=== PATIENT | female | born 1985 | race Caucasian/White ===

== ENCOUNTER 2018-08-31 04:04 | Emergency (ER) | payer OTHER ==
[~2018-08-31] VITALS: Ht 162.6 cm; Wt 99.8 kg
[2018-08-31 04:06] VITALS: BP 127/74
--- NOTE | 2018-08-31 04:06 | NUR ---
to bed # 5 ambulatory, report given to Greg Jack
--- NOTE | 2018-08-31 04:10 | NUR ---
PT PRESENTED ER WITH C/O PAIN TO THE LEFT EYE, CONGESTION AND COUGH X 3 DAYS. PT STATED SHE HAD FEVER, N/V/D X 2 DAYS AGO. PT DENIES FEVER, D/N/V AT THIS TIME. PAIN LEVEL IS 9/10 AT THIS TIME. PT IS A/O X 4. PT STATED SHE TOOK NYQUIL, EYE DROPS VISINE, AND IBUPROFEN. PT STATES SHE CANT OPEN HER LEFT EYE WITHOUT IT BURNING. PT HAS REDNESS AND SWELLING TO THE LEFT EYE; VSS; PATIENT POSITIONED FOR COMFORT; HOB ELEVATED; BEDRAILS UP X2; BED DOWN. ER MD MADE AWARE OF PT STATUS.
--- NOTE | 2018-08-31 04:21 | NUR ---
Dr. Mcintosh evaluating patient at bedside.
[2018-08-31] MEDS ORDERED: NACL 0.9% 1,000 ML IV ONE (04:30)
[2018-08-31 05:01] LABS: BASOPHILS % (AUTO) 0.4 % (0.0-2.0); EOSINOPHILS # (AUTO) 0.4 K/uL (0-0.4); EOSINOPHILS % (AUTO) 3.2 % (0.0-4.0); HEMATOCRIT 41.5 % (36-48); HEMOGLOBIN 13.3 g/dL (12.0-16.0); LYMPHOCYTES # (AUTO) 1.9 K/uL (2.5-16.5); LYMPHOCYTES % (AUTO) 17.1 % (20.5-51.1); MEAN CORPUSCULAR HEMOGLOBIN 26 pg (27-31); MEAN CORPUSCULAR HGB CONC 32 g/dL (33-37); MEAN CORPUSCULAR VOLUME 81.8 fL (80-94); MONOCYTES # (AUTO) 0.8 K/uL (0.8-1.0); MONOCYTES % (AUTO) 7.4 % (1.7-9.3); NEUTROPHILS # (AUTO) 7.9 K/uL (1.8-7.7); NEUTROPHILS % (AUTO) 71.9 % (42.2-75.2); PLATELET COUNT (AUTO) 343 K/uL (140-450); RED BLOOD CELL COUNT(AUTO) 5.07 MIL/uL (4.20-5.40); RED CELL DISTRIBUTION WIDTH 12.6 % (11.6-13.7); WHITE BLOOD COUNT (AUTO) 11.1 K/uL (4.8-10.8)
[2018-08-31 05:09] LABS: ANION GAP 11.9 (8-16); CARBON DIOXIDE 26.4 mmol/L (21-32); CREATININE 0.7 mg/dL (0.6-1.3); POTASSIUM 4.3 mmol/L (3.5-5.1)
[2018-08-31 05:17] LABS: ALBUMIN 3.5 g/dL (3.4-5.0); TOTAL BILIRUBIN 0.3 mg/dL (0.0-1.0)
--- NOTE | 2018-08-31 05:17 | NUR ---
PT BACK FROM CT BY WHEEL CHAIR
[2018-08-31] MEDS ORDERED: ONDANSETRON 4 MG/2 ML VIAL IVP ONE (05:55)
[2018-08-31] MEDS ORDERED: KETOROLAC 30 MG/ML VIAL IVP ONE (06:05)
--- NOTE | 2018-08-31 06:13 | NUR ---
PT STARTED FEELING NAUSEOUS AND VOMITING, ER MD MADE AWARE, PT GIVEN 8MG ZOFRAN IVP. PT C/O MILD HEADACHE, ER MD MADE AWARE. PT GIVEN TORADOL IVP.
[2018-08-31 06:56] VITALS: BP 127/72
--- NOTE | 2018-08-31 06:56 | NUR ---
Patient discharged with v/s stable. Written and verbal after care instructions given and explained. Patient alert, oriented and verbalized understanding of instructions. Ambulatory with steady gait. All questions addressed prior to discharge. ID band removed. Patient advised to follow up with PMD. Rx of Keflex, Motrin, Bactrim, Prednisone given. Patient educated on indication of medication including possible reaction and side effects. Opportunity to ask questions provided and answered.
== END 2018-08-31 06:56 | disposition home or self-care (01) ==
LOC: MED 04:04
DX: H05.012 Cellulitis of left orbit (principal); L93.0 Discoid lupus erythematosus
CPT/HCPCS: 36415; 70481; 80053; 81002; 81025; 85025; 96374; 96375; 99284; J1885; J2405; Q9967

== ENCOUNTER 2018-11-06 08:11 | Emergency (ER) | payer OTHER ==
[~2018-11-06] VITALS: Ht 162.6 cm; Wt 104.3 kg
[2018-11-06 08:12] VITALS: BP 113/66
--- NOTE | 2018-11-06 08:12 | NUR ---
PT BIB SELF C/O FRONTAL REGION HEADACHE 10/10 AND BUMP ON FRONTAL HEAD WORSENING OVER 5 MOS. +N/V. DENIES CP/SOB/FEVERS/CHILLS. HX--NONE MEDS--NONE
--- NOTE | 2018-11-06 08:12 | NUR ---
PT AMBULATED TO BED 7
--- NOTE | 2018-11-06 08:12 | NUR ---
Dallin mcintyre in EDM - 11/06/18 at 0842 by [email or web address] PT BIB SELF C/O FRONTAL REGION HEADACHE 06/27 AND BUMP ON FRONTAL HEAD WORSENING OVER 5 MOS. +N/V. DENIES CP/SOB/FEVERS/CHILLS. HX--NONE MEDS--NONE
[2018-11-06] MEDS ORDERED: METOCLOPRAMIDE 10 MG/2 ML INJ VIAL IM ONE (08:45)
[2018-11-06] MEDS ORDERED: KETOROLAC 60 MG/2 ML VIAL IM ONE (08:45)
[2018-11-06 09:39] VITALS: BP 128/72
--- NOTE | 2018-11-06 09:39 | NUR ---
Patient discharged with v/s stable. Written and verbal after care instructions given and explained. Patient alert, oriented and verbalized understanding of instructions. Ambulatory with steady gait. All questions addressed prior to discharge. ID band removed. Patient advised to follow up with PMD. Rx of REGLAN given. Patient educated on indication of medication including possible reaction and side effects. Opportunity to ask questions provided and answered.
== END 2018-11-06 09:39 | disposition home or self-care (01) ==
LOC: MED 08:11
DX: G43.909 Migraine, unspecified, not intractable, without status migrainosus (principal); Z79.1 Long term (current) use of non-steroidal anti-inflammatories (NSAID)
CPT/HCPCS: 81025; 96372; 99283; J1885; J2765

== ENCOUNTER 2019-03-21 17:38 | Emergency (ER) | payer OTHER ==
[~2019-03-21] VITALS: Ht 162.6 cm; Wt 98.9 kg
[2019-03-21 17:52] VITALS: BP 107/65
[2019-03-21] MEDS ORDERED: KETOROLAC 60 MG/2 ML VIAL IM ONE (18:40)
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
[2019-03-21 19:58] VITALS: BP 107/65
--- NOTE | 2019-03-21 19:59 | NUR ---
Patient discharged with v/s stable. Written and verbal after care instructions given and explained. Patient alert, oriented and verbalized understanding of instructions. Ambulatory with steady gait. All questions addressed prior to discharge. ID band removed. Patient advised to follow up with PMD. Rx of Baclofen given. Patient educated on indication of medication including possible reaction and side effects. Opportunity to ask questions provided and answered.
== END 2019-03-21 19:59 | disposition home or self-care (01) ==
LOC: MED 17:38
DX: M79.10 Myalgia, unspecified site (principal); V43.52XA Car driver injured in collision with other type car in traffic accident, initial encounter; Y93.89 Activity, other specified; Y92.89 Other specified places as the place of occurrence of the external cause; Y99.8 Other external cause status
CPT/HCPCS: 71046; 72040; 72100; 81025; 96372; 99284; J1885

== ENCOUNTER 2020-10-14 07:13 | Emergency (ER) | payer OTHER ==
[~2020-10-14] VITALS: Ht 170.2 cm; Wt 106.1 kg
[2020-10-14 07:14] VITALS: BP 140/75
[2020-10-14] MEDS ORDERED: KETOROLAC 60 MG/2 ML VIAL IM ONE (07:40)
[2020-10-14 08:12] VITALS: BP 140/75
== END 2020-10-14 08:13 | disposition home or self-care (01) ==
LOC: MED 07:13
DX: R51.9 Headache, unspecified (principal); M54.2 Cervicalgia; F17.200 Nicotine dependence, unspecified, uncomplicated; Z98.890 Other specified postprocedural states
CPT/HCPCS: 81002; 81025; 99283; J1885

== ENCOUNTER 2021-02-16 06:00 | Emergency (ER) | payer OTHER ==
[~2021-02-16] VITALS: Ht 170.2 cm; Wt 105.7 kg
[2021-02-16 06:11] VITALS: BP 125/79
--- NOTE | 2021-02-16 06:11 | NUR ---
TO BED AMBULATORY
--- NOTE | 2021-02-16 06:21 | NUR ---
PT BIB SELF FOR C/O NASAL CONGESTION AND HEADACHE X 3 DAYS. PT REPORTS COUGH IS DRY, NON PRODUCTIVE. PAIN IS 9/10. PT REPORTS TAKING BENADRYL AT 0400 WITHOUT RELIEF. DENIES N/V/D, FEVER, CHILLS, CP. PT REPORTS DIFFICULTY BREATHING. VSS, O2 SAT 98% R.A. PT DENIES CONTACT WITH COVID-19 PERSONS. SEE COMPLETE ASSESSMENT FOR FURTHER DETAILS. MED HX: LUPUS ALLERGIES: NKA
--- NOTE | 2021-02-16 06:22 | NUR ---
ERMD AT BEDSIDE.
--- NOTE | 2021-02-16 06:32 | NUR ---
NOVEL COVID SWAB COLLECTED AND TAKEN TO LAB.
[2021-02-16 06:39] VITALS: BP 125/79
--- NOTE | 2021-02-16 06:39 | NUR ---
Patient discharged with v/s stable. Written and verbal after care instructions given and explained. Patient verbalized understanding. Ambulatory with steady gait. All questions addressed prior to discharge. Advised to follow up with PMD.
== END 2021-02-16 06:39 | disposition home or self-care (01) ==
LOC: MED 06:00
DX: J02.9 Acute pharyngitis, unspecified (principal); Z20.822 Contact with and (suspected) exposure to COVID-19
CPT/HCPCS: 99283; U0003

== ENCOUNTER 2021-04-23 14:50 | Emergency (ER) | payer OTHER ==
[~2021-04-23] VITALS: Ht 170.2 cm; Wt 110.7 kg
[2021-04-23 15:28] VITALS: BP 118/68
--- NOTE | 2021-04-23 15:35 | NUR ---
Patient to lobby for next available bed.
[2021-04-23] MEDS ORDERED: DIPH25TA53 PO (16:16)
[2021-04-23] MEDS ORDERED: KEN.1O TP (16:16)
[2021-04-23] MEDS ORDERED: PRED20TA5 PO (16:16)
--- NOTE | 2021-04-23 17:05 | NUR ---
No nursing interventions performed.
[2021-04-23 17:10] VITALS: BP 97/66
--- NOTE | 2021-04-23 17:10 | NUR ---
Patient discharged with v/s stable. Written and verbal after care instructions given and explained. Patient alert, oriented and verbalized understanding of instructions. Ambulatory with steady gait. All questions addressed prior to discharge. ID band removed. Patient advised to follow up with PMD. Rx of Prednisone, Benadryl, Kenalog 0.1% given. Patient educated on indication of medication including possible reaction and side effects. Opportunity to ask questions provided and answered.
== END 2021-04-23 17:10 | disposition home or self-care (01) ==
LOC: MED 14:50
DX: R21 Rash and other nonspecific skin eruption (principal); Z79.899 Other long term (current) drug therapy; Z98.890 Other specified postprocedural states; Z90.49 Acquired absence of other specified parts of digestive tract
CPT/HCPCS: 99283

== ENCOUNTER 2021-09-07 06:07 | Emergency (ER) | payer OTHER ==
[~2021-09-07] VITALS: Ht 170.2 cm; Wt 111.1 kg
[~2021-09-07 06:07] MED LIST: DIPH25TA53 PO; KEN.1O TP; PRED20TA5 PO
[2021-09-07 06:15] VITALS: BP 129/76
[2021-09-07] MEDS: KETOROLAC 30 MG/ML VIAL IM ONE (06:39)
[2021-09-07] MEDS: ONDANSETRON 4 MG ODT PO ONE (06:40)
[2021-09-07] MEDS: ACETAMIN/CODEINE 120/12MG-5ML 5 ML UDC PO ONE (07:26)
[2021-09-07] MEDS ORDERED: ROBAC PO ×2 (07:51→08:07)
[2021-09-07] MEDS ORDERED: ONDA-188 PO ×2 (07:51→08:07)
[2021-09-07] MEDS ORDERED: NAPR-54 PO ×2 (07:51→08:07)
[2021-09-07 08:12] VITALS: BP 127/69
== END 2021-09-07 08:12 | disposition home or self-care (01) ==
LOC: MED 06:07
DX: J20.9 Acute bronchitis, unspecified (principal); Z20.822 Contact with and (suspected) exposure to COVID-19
CPT/HCPCS: 71045; 87426; 96372; 99284; J1885; Q0092; Q0162

== ENCOUNTER 2021-12-16 09:00 | Emergency (ER) | payer OTHER ==
[~2021-12-16] VITALS: Ht 170.2 cm; Wt 113.9 kg
[~2021-12-16 09:00] MED LIST changes: +NAPR-54 PO; +ONDA-188 PO; +ROBAC PO
[2021-12-16 09:04] VITALS: BP 133/95
[2021-12-16] MEDS ORDERED: SUD30 PO (09:16)
[2021-12-16 09:34] VITALS: BP 133/95
== END 2021-12-16 09:34 | disposition home or self-care (01) ==
LOC: MED 09:00
DX: J06.9 Acute upper respiratory infection, unspecified (principal); Z79.899 Other long term (current) drug therapy
CPT/HCPCS: 99282

== ENCOUNTER 2022-01-05 09:50 | Emergency (ER) | payer OTHER ==
[~2022-01-05] VITALS: Ht 170.2 cm; Wt 112.0 kg
[~2022-01-05 09:50] MED LIST changes: +SUD30 PO
[2022-01-05 09:53] VITALS: BP 121/72
--- NOTE | 2022-01-05 09:56 | NUR ---
PT AMBULATED TO BED 6
--- NOTE | 2022-01-05 10:22 | NUR ---
36 Y/O FEMALE C/O EPIGASTRIC ABD WHICH RADIATES TO THE BACK RATED PAIN 06/27 X1DAY. PT STATES +N/+V UNABLE TO HOLD LIQUIDS DOWN. PT STATES THE PAIN IS WORSE AFTER EATING. DENIES FEVER/CHILLS. PT DENIES TAKING MEDICATION PRIOR TO ARRIVAL TO ED. PT DENIES SOB, CHEST PAIN. PT ALERT AND ORIENTED X4. BED IN LOWEST POSITION. BED RAIL X1. PMH: DENIES MEDS: DENIES NKA
--- NOTE | 2022-01-05 10:27 | NUR ---
LAB AT PT BEDSIDE
--- NOTE | 2022-01-05 10:27 | NUR ---
URINE HANDED TO CREATIVE STRATEGIST
[2022-01-05 10:35] LABS: APPEARANCE,URINE CLEAR (CLEAR); BILIRUBIN,URINE NEGATIVE (NEGATIVE); BLOOD, URINE 2+ (NEGATIVE); COLOR,URINE YELLOW (YELLOW); LEUKOCYTE ESTERASE ,URINE NEGATIVE (NEGATIVE); NITRITE, URINE NEGATIVE (NEGATIVE); UGLUCOSE NEGATIVE (NEGATIVE)
[2022-01-05 10:36] LABS: BASOPHILS % (AUTO) 0.5 % (0.0-2.0); EOSINOPHILS # (AUTO) 0.1 K/uL (0-0.4); EOSINOPHILS % (AUTO) 1.3 % (0.0-4.0); HEMATOCRIT 41.8 % (36-48); HEMOGLOBIN 13.7 g/dL (12.0-16.0); LYMPHOCYTES # (AUTO) 1.6 K/uL (2.5-16.5); LYMPHOCYTES % (AUTO) 20.8 % (20.5-51.1); MEAN CORPUSCULAR HEMOGLOBIN 28 pg (27-31); MEAN CORPUSCULAR HGB CONC 33 g/dL (33-37); MEAN CORPUSCULAR VOLUME 83.7 fL (80-94); MONOCYTES # (AUTO) 0.5 K/uL (0.8-1.0); MONOCYTES % (AUTO) 7.1 % (1.7-9.3); NEUTROPHILS # (AUTO) 5.3 K/uL (1.8-7.7); NEUTROPHILS % (AUTO) 70.3 % (42.2-75.2); PLATELET COUNT (AUTO) 358 K/uL (140-450); RED BLOOD CELL COUNT(AUTO) 4.99 MIL/uL (4.20-5.40); RED CELL DISTRIBUTION WIDTH 13.1 % (11.6-13.7); WHITE BLOOD COUNT (AUTO) 7.5 K/uL (4.8-10.8)
[2022-01-05 10:58] LABS: ALBUMIN 3.5 g/dL (3.4-5.0); ANION GAP 13.9 (8-16); CARBON DIOXIDE 24.3 mmol/L (21-32); CREATININE 0.8 mg/dL (0.6-1.3); POTASSIUM 4.2 mmol/L (3.5-5.1); TOTAL BILIRUBIN 0.5 mg/dL (0.0-1.0)
[2022-01-05 11:34] LABS: RBC,URINE 0-5 /HPF (0-5); WBC,URINE 0-5 /HPF (0-5)
[2022-01-05 11:35] LABS: CALCIUM OXALATE CRYSTALS,UR None Seen /HPF (None Seen); TRICHOMONAS,URINE None Seen /HPF (None Seen); YEAST,URINE None Seen /HPF (None Seen)
[2022-01-05 11:36] LABS: COARSE GRANULAR CASTS,URINE None Seen /LPF (None Seen); FINE GRANULAR CASTS,URINE None Seen /LPF (None Seen); HYALINE CASTS, URINE None Seen /LPF (None Seen); OTHER CASTS, URINE None Seen /LPF (None Seen); OTHER CRYSTALS,URINE None Seen /HPF (None Seen); RED BLOOD CELL CASTS,URINE None Seen /LPF (None Seen); TRIPLE PHOSPHATE CRYSTAL,UR None Seen /HPF (None Seen); URIC ACID CRYSTALS,URINE None Seen /HPF (None Seen); URINE AMORPHOUS URATE None Seen /HPF (None Seen); WAXY CASTS,URINE None Seen /LPF (None Seen)
[2022-01-05] MEDS ORDERED: ONDANSETRON 4 MG TAB PO ONE (11:40)
[2022-01-05] MEDS ORDERED: DICYCLOMINE 10 MG CAP PO ONE (11:40)
[2022-01-05] MEDS ORDERED: FAMOTIDINE 20 MG TAB PO ONE (11:40)
[2022-01-05] MEDS ORDERED: ONDA-188 PO (11:55)
[2022-01-05] MEDS ORDERED: BEN10 PO (11:55)
[2022-01-05] MEDS ORDERED: FAMO-90 PO (11:55)
[2022-01-05 12:23] VITALS: BP 113/80
--- NOTE | 2022-01-05 12:23 | NUR ---
Patient discharged with v/s stable. Written and verbal after care instructions given and explained. Patient alert, oriented and verbalized understanding of instructions. Ambulatory with steady gait. All questions addressed prior to discharge. ID band removed. Patient advised to follow up with PMD. Rx of ZOFRAN, PEPCID, AND BENTYL given. Patient educated on indication of medication including possible reaction and side effects. Opportunity to ask questions provided and answered.
== END 2022-01-05 12:23 | disposition home or self-care (01) ==
LOC: MED 09:50
DX: K52.9 Noninfective gastroenteritis and colitis, unspecified (principal); Z90.49 Acquired absence of other specified parts of digestive tract; Z79.899 Other long term (current) drug therapy; Z79.1 Long term (current) use of non-steroidal anti-inflammatories (NSAID)
CPT/HCPCS: 36415; 80053; 81001; 81025; 83690; 85025; 99284; Q0162

== ENCOUNTER 2022-03-16 17:28 | Emergency (ER) | payer OTHER ==
[~2022-03-16] VITALS: Ht 170.2 cm; Wt 115.9 kg
[~2022-03-16 17:28] MED LIST changes: +BEN10 PO; +FAMO-90 PO
[2022-03-16 17:40] VITALS: BP 125/80
--- NOTE | 2022-03-16 21:39 | NUR ---
COVID-19 swabs collected and sent to lab.
--- NOTE | 2022-03-16 21:43 | NUR ---
Patient ambulated to bed 1.
--- NOTE | 2022-03-16 22:07 | NUR ---
36 Y/O FEMALE BIB SELF C/O SINUS PAIN, DIARRHEA, RUNNY NOSE X 1 DAY. PT TOOK ZYRTEC W/ NO SYMPTOMATIC PAIN RELIEF. PMH:LUPUS MEDS: DENIES
[2022-03-16] MEDS ORDERED: SUD30 PO (22:26)
[2022-03-16] MEDS ORDERED: PROM118S5 PO (22:26)
[2022-03-16 22:50] VITALS: BP 125/80
--- NOTE | 2022-03-16 22:50 | NUR ---
Patient discharged with v/s stable. Written and verbal after care instructions given and explained. Patient alert, oriented and verbalized understanding of instructions. Ambulatory with steady gait. All questions addressed prior to discharge. ID band removed. Patient advised to follow up with PMD. Rx of PROMETHAZINE AND SUDAFED given. Patient educated on indication of medication including possible reaction and side effects. Opportunity to ask questions provided and answered.
== END 2022-03-16 22:50 | disposition home or self-care (01) ==
LOC: MED 17:28
DX: U07.1 COVID-19 (principal)
CPT/HCPCS: 36415; 84702; 99283

== ENCOUNTER 2022-04-07 18:08 | Emergency (ER) | payer OTHER ==
[~2022-04-07] VITALS: Ht 170.2 cm; Wt 117.5 kg
[~2022-04-07 18:08] MED LIST changes: +PROM118S5 PO
[2022-04-07 18:30] VITALS: BP 132/95
--- NOTE | 2022-04-07 18:50 | NUR ---
36 Y/O FEMALE C/O OF BILATERAL KNEE AND LEG PAIN X2DAYS, NOTED SWELLING ON THE KNEES, WARM TO TOUCH, DENIES ANY TRAUMA/INJURY. PT STATES THAT R KLEG HURTS WORSE THAN L LEG. 06/27 PAIN. DENIES N/V/D/ CHEST PAIN OR SOB. A&OX4, SKIN INTACT, VITALS WNL FOR PT AND WHEELCHAIR ASSISTED TO BEDSIDE. NKA PMH: LUPUS, FIBROMYALGIA, HEPATITIS (UNKNOWN TYPE)
--- NOTE | 2022-04-07 19:20 | NUR ---
US AT BEDSIDE
--- NOTE | 2022-04-07 19:23 | NUR ---
Note undone in EDM - 04/07/22 at 1929 by CATHRYN Patient discharged with v/s stable. Written and verbal after care instructions given and explained. Patient alert, oriented and verbalized understanding of instructions. Ambulatory with steady gait. All questions addressed prior to discharge. ID band removed. Patient advised to follow up with PMD. Rx of ZOFRAN AND PROMETHAZINE-DM given. Patient educated on indication of medication including possible reaction and side effects. Opportunity to ask questions provided and answered.
--- NOTE | 2022-04-07 19:30 | NUR ---
Pt report given to RACHEL HIRSCH. Transfer of care at this time.
[2022-04-07] MEDS ORDERED: KETOROLAC 30 MG/ML VIAL IM ONE (20:50)
[2022-04-07 21:45] VITALS: BP 132/95
== END 2022-04-07 21:45 | disposition home or self-care (01) ==
LOC: MED 18:08
DX: M79.604 Pain in right leg (principal); Z90.49 Acquired absence of other specified parts of digestive tract; Z98.890 Other specified postprocedural states
CPT/HCPCS: 93971; 96372; 99284; J1885; Q0092

== ENCOUNTER 2022-06-13 09:42 | Emergency (ER) | payer OTHER ==
[~2022-06-13] VITALS: Ht 170.2 cm; Wt 112.0 kg
[2022-06-13 09:57] VITALS: BP 126/71
--- NOTE | 2022-06-13 10:00 | NUR ---
37 y/o female bib self from home, pt presents to ed with c/o gibbs, left ear pain, vomiting that started last night. 9/10 throbbing, pressure pain. denies anyone sick at home with same s/s, chills, cp, sob, fevers. denies loc, syncope, fall. a&ox4, ambulates with steady gait. pmh: lupus nka med: denies
[2022-06-13] MEDS ORDERED: KETOROLAC 60 MG/2 ML VIAL IM ONE (14:10)
[2022-06-13] MEDS ORDERED: ONDANSETRON 4 MG ODT PO ONE (14:10)
[2022-06-13] MEDS ORDERED: ONDA8TAB87 PO (15:19)
[2022-06-13] MEDS ORDERED: IBUP-2213 PO (15:19)
[2022-06-13] MEDS ORDERED: ACET-8386 PO (15:19)
[2022-06-13 15:31] VITALS: BP 131/75
--- NOTE | 2022-06-13 15:31 | NUR ---
Patient discharged with v/s stable. Written and verbal after care instructions given. Patient alert, oriented and verbalized understanding of instructions. Ambulatory with steady gait. All questions addressed prior to discharge. ID band removed. Patient advised to follow up with PMD. Rx of Hydrocodone-Acetaminophen, Zofran and Ibuprofen given. Opportunity to ask questions provided and answered.
--- NOTE | 2022-06-13 15:52 | NUR ---
The patient's care was reviewed and supervised by Stephany Stanton, RN, RN.
== END 2022-06-13 15:31 | disposition home or self-care (01) ==
LOC: MED 09:42
DX: R51.9 Headache, unspecified (principal); R11.0 Nausea; Z90.49 Acquired absence of other specified parts of digestive tract; Z98.890 Other specified postprocedural states; Z79.899 Other long term (current) drug therapy
CPT/HCPCS: 81002; 81025; 96372; 99283; J1885; Q0162

== ENCOUNTER 2022-11-04 09:55 | Emergency (ER) | payer OTHER ==
[~2022-11-04] VITALS: Ht 170.2 cm; Wt 111.1 kg
[~2022-11-04 09:55] MED LIST changes: +ACET-8905 PO; +IBUP-2213 PO; +ONDA8TAB87 PO
[2022-11-04 10:04] VITALS: BP 153/94
--- NOTE | 2022-11-04 10:27 | NUR ---
PT AMBULATED TO BED 05.
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
--- NOTE | 2022-11-04 11:43 | NUR ---
DR MARTINEZ AT BEDSIDE FOR EVAL
[2022-11-04] MEDS ORDERED: FAMOTIDINE 20 MG TAB PO ONE (11:45)
[2022-11-04] MEDS ORDERED: ACETAMINOPHEN 325 MG TAB PO ONE (11:45)
[2022-11-04] MEDS ORDERED: ONDANSETRON 4 MG ODT PO ONE (11:45)
[2022-11-04 11:57] VITALS: BP 135/74
[2022-11-04] MEDS ORDERED: ONDA-188 PO (12:36)
--- NOTE | 2022-11-04 12:42 | NUR ---
Patient discharged with v/s stable. Written and verbal after care instructions ABOUT GASTRITIS AND NV given and explained. Patient alert, oriented and verbalized understanding of instructions. Ambulatory with steady gait. All questions addressed prior to discharge. ID band removed. Patient advised to follow up with PMD. Rx of ZOFRAN ODT given. Patient educated on indication of medication including possible reaction and side effects. Opportunity to ask questions provided and answered.
== END 2022-11-04 12:41 | disposition home or self-care (01) ==
LOC: MED 09:55
DX: K29.00 Acute gastritis without bleeding (principal); M32.9 Systemic lupus erythematosus, unspecified; M79.7 Fibromyalgia; Z90.49 Acquired absence of other specified parts of digestive tract; Z98.890 Other specified postprocedural states; Z79.899 Other long term (current) drug therapy; Z79.1 Long term (current) use of non-steroidal anti-inflammatories (NSAID); Z79.891 Long term (current) use of opiate analgesic
CPT/HCPCS: 81025; 99284; Q0162

== ENCOUNTER 2023-01-31 11:08 | Emergency (ER) | payer OTHER ==
[~2023-01-31] VITALS: Ht 170.2 cm; Wt 245.4 kg
[2023-01-31 11:59] VITALS: BP 110/75
--- NOTE | 2023-01-31 13:20 | NUR ---
Blood work obtained, urine sample obtained, handed to CPT at bedside.
[2023-01-31 13:24] LABS: BASOPHILS # (AUTO) 0.1 K/uL (0.00-0.22); BASOPHILS % (AUTO) 1.2 % (0.0-2.0); EOSINOPHILS # (AUTO) 0.3 K/uL (0-0.4); EOSINOPHILS % (AUTO) 3.5 % (0.0-4.0); HEMATOCRIT 40.1 % (36-48); HEMOGLOBIN 13.3 g/dL (12.0-16.0); LYMPHOCYTES # (AUTO) 2.6 K/uL (2.5-16.5); LYMPHOCYTES % (AUTO) 32.1 % (20.5-51.1); MEAN CORPUSCULAR HEMOGLOBIN 28 pg (27-31); MEAN CORPUSCULAR HGB CONC 33 g/dL (33-37); MEAN CORPUSCULAR VOLUME 83.1 fL (80-94); MONOCYTES # (AUTO) 0.6 K/uL (0.8-1.0); MONOCYTES % (AUTO) 7.1 % (1.7-9.3); NEUTROPHILS # (AUTO) 4.6 K/uL (1.8-7.7); NEUTROPHILS % (AUTO) 56.1 % (42.2-75.2); PLATELET COUNT (AUTO) 330 K/uL (140-450); RED BLOOD CELL COUNT(AUTO) 4.82 MIL/uL (4.20-5.40); RED CELL DISTRIBUTION WIDTH 13.3 % (11.6-13.7); WHITE BLOOD COUNT (AUTO) 8.1 K/uL (4.8-10.8)
[2023-01-31 14:15] LABS: ALBUMIN 3.9 g/dL (3.4-5.0); ANION GAP 13.2 (8-16); CARBON DIOXIDE 28.4 mmol/L (21-32); CREATININE 0.8 mg/dL (0.6-1.3); POTASSIUM 4.6 mmol/L (3.5-5.1); TOTAL BILIRUBIN 0.5 mg/dL (0.0-1.0)
[2023-01-31 14:46] LABS: APPEARANCE,URINE CLEAR (CLEAR); BILIRUBIN,URINE NEGATIVE (NEGATIVE); BLOOD, URINE NEGATIVE (NEGATIVE); COLOR,URINE YELLOW (YELLOW); LEUKOCYTE ESTERASE ,URINE NEGATIVE (NEGATIVE); NITRITE, URINE NEGATIVE (NEGATIVE); PH,URINE 5.5 (5.0-9.0); UGLUCOSE NEGATIVE (NEGATIVE)
--- NOTE | 2023-01-31 15:10 | NUR ---
PT. D.C BY DR. CASTRO BEFORE THIS RN COULD EXAMINE PT. ALL INSTRUCTIONS AND AFTERCARE INST. GIVEN BY .
== END 2023-01-31 15:10 | disposition home or self-care (01) ==
LOC: MED 11:08
DX: B34.9 Viral infection, unspecified (principal); Z79.899 Other long term (current) drug therapy; Z98.890 Other specified postprocedural states
CPT/HCPCS: 36415; 80053; 81003; 81025; 85025; 99283

== ENCOUNTER 2023-07-24 03:15 | Emergency (ER) | payer OTHER ==
[~2023-07-24] VITALS: Ht 162.6 cm; Wt 113.9 kg
[2023-07-24 03:30] VITALS: BP 119/80; PULSE 77; RESP 18; TEMP 98.4; O2SAT 100
[2023-07-24] MEDS ORDERED: ONDANSETRON 4 MG/2 ML VIAL IVP ONE (04:05)
[2023-07-24] MEDS ORDERED: KETOROLAC 30 MG/ML VIAL IVP ONE (04:05)
[2023-07-24] MEDS ORDERED: NACL 0.9% 1,000 ML IV SCH (04:05)
[2023-07-24 04:33] LABS: BASOPHILS % (AUTO) 0.5 % (0.0-2.0); EOSINOPHILS # (AUTO) 0.2 K/uL (0-0.4); EOSINOPHILS % (AUTO) 2.3 % (0.0-4.0); HEMATOCRIT 41.5 % (36-48); HEMOGLOBIN 13.7 g/dL (12.0-16.0); LYMPHOCYTES # (AUTO) 1.3 K/uL (2.5-16.5); LYMPHOCYTES % (AUTO) 19.9 % (20.5-51.1); MEAN CORPUSCULAR HEMOGLOBIN 28 pg (27-31); MEAN CORPUSCULAR HGB CONC 33 g/dL (33-37); MEAN CORPUSCULAR VOLUME 83.7 fL (80-94); MONOCYTES # (AUTO) 0.4 K/uL (0.8-1.0); MONOCYTES % (AUTO) 6.2 % (1.7-9.3); NEUTROPHILS # (AUTO) 4.8 K/uL (1.8-7.7); NEUTROPHILS % (AUTO) 71.1 % (42.2-75.2); PLATELET COUNT (AUTO) 325 K/uL (140-450); RED BLOOD CELL COUNT(AUTO) 4.96 MIL/uL (4.20-5.40); RED CELL DISTRIBUTION WIDTH 13.2 % (11.6-13.7); WHITE BLOOD COUNT (AUTO) 6.7 K/uL (4.8-10.8)
[2023-07-24 04:47] LABS: ALBUMIN 3.6 g/dL (3.4-5.0); CALCIUM 8.4 mg/dL (8.5-10.1); CARBON DIOXIDE 25.2 mmol/L (21-32); CREATININE 0.8 mg/dL (0.6-1.3); POTASSIUM 4.2 mmol/L (3.5-5.1); TOTAL BILIRUBIN 0.7 mg/dL (0.0-1.0)
[2023-07-24 05:00] LABS: APPEARANCE,URINE CLEAR (CLEAR); BILIRUBIN,URINE NEGATIVE (NEGATIVE); BLOOD, URINE 1+ (NEGATIVE); COLOR,URINE YELLOW (YELLOW); LEUKOCYTE ESTERASE ,URINE NEGATIVE (NEGATIVE); NITRITE, URINE NEGATIVE (NEGATIVE); PROTEIN,URINE NEGATIVE (NEGATIVE); UGLUCOSE NEGATIVE (NEGATIVE); UROBILINOGEN,URINE 0.2 EU/dL (0.2 - 1)
[2023-07-24 05:14] LABS: BACTERIA,URINE 10-30 (MOD) /HPF (None Seen); MUCUS,URINE 1+ /LPF (None Seen); SQUAMOUS EPITHELIAL CELL,UR 0-3 (FEW) /LPF (0-3 (FEW))
[2023-07-24] MEDS ORDERED: ONDA-188 SL (05:29)
[2023-07-24] MEDS ORDERED: CEPH-588 PO (05:29)
[2023-07-24 05:50] VITALS: BP 119/80; PULSE 77; RESP 18; TEMP 98.4; O2SAT 100
== END 2023-07-24 05:50 | disposition home or self-care (01) ==
LOC: MED 03:15
DX: N39.0 Urinary tract infection, site not specified (principal); R19.7 Diarrhea, unspecified; R51.9 Headache, unspecified; Z79.899 Other long term (current) drug therapy
CPT/HCPCS: 36415; 80053; 81001; 81025; 83690; 85025; 87086; 96361; 96374; 96375; 99284; J1885; J2405; J7030

== ENCOUNTER 2023-11-09 19:12 | Emergency (ER) | payer OTHER ==
[~2023-11-09] VITALS: Ht 170.2 cm; Wt 105.7 kg
[~2023-11-09 19:12] MED LIST changes: +CEPH-588 PO; +ONDA-188 SL
[2023-11-09 19:46] VITALS: BP 121/79; PULSE 74; RESP 16; TEMP 98.3; O2SAT 98
[2023-11-09] MEDS ORDERED: IBUP-2218 PO (19:51)
[2023-11-09] MEDS ORDERED: ONDA-188 SL (19:51)
[2023-11-09] MEDS ORDERED: BENZ200C4 PO (19:52)
[2023-11-09] MEDS: ONDANSETRON 4 MG ODT PO ONE (19:52)
[2023-11-09] MEDS: IBUPROFEN 800 MG TAB PO ONE (19:53)
[2023-11-09 19:58] VITALS: O2SAT 96
[2023-11-09 20:17] LABS: FLU A ANTIGEN negative (NEGATIVE); FLU B ANTIGEN negative (NEGATIVE)
[2023-11-09] MEDS ORDERED: OXYM15SP72 NS (20:20)
[2023-11-09 20:36] VITALS: BP 129/74; PULSE 72; RESP 17; TEMP 98; O2SAT 96
== END 2023-11-09 20:36 | disposition home or self-care (01) ==
LOC: MED 19:12
DX: U07.1 COVID-19 (principal); Z79.899 Other long term (current) drug therapy
CPT/HCPCS: 81025; 87426; 87804; 99283; Q0162

== ENCOUNTER 2024-01-25 05:00 | Emergency (ER) | payer OTHER ==
[~2024-01-25] VITALS: Ht 170.2 cm; Wt 105.7 kg
[~2024-01-25 05:00] MED LIST changes: +BENZ200C4 PO; +IBUP-2218 PO; +NAPR-337 PO; -NAPR-54 PO; +OXYM15SP72 NS
[2024-01-25 05:06] VITALS: BP 122/80; PULSE 72; RESP 16; TEMP 97.2; O2SAT 99
[2024-01-25] MEDS ORDERED: ROBAC PO (05:43)
[2024-01-25] MEDS ORDERED: AZIT250T4 PO (05:43)
[2024-01-25 05:48] VITALS: BP 122/80; PULSE 72; RESP 16; TEMP 97.2; O2SAT 99
[2024-01-25] MEDS: ONDANSETRON 4 MG ODT PO ONE (05:48)
== END 2024-01-25 05:48 | disposition home or self-care (01) ==
LOC: MED 05:00
DX: J20.9 Acute bronchitis, unspecified (principal); Z79.1 Long term (current) use of non-steroidal anti-inflammatories (NSAID); Z79.899 Other long term (current) drug therapy
CPT/HCPCS: 71045; 99283; Q0162

== ENCOUNTER 2024-06-23 12:39 | Emergency (ER) | payer OTHER ==
[~2024-06-23] VITALS: Ht 170.2 cm; Wt 108.9 kg
[~2024-06-23 12:39] MED LIST changes: +AZIT250T4 PO
[2024-06-23 13:00] VITALS: BP 119/72; PULSE 75; RESP 20; TEMP 97.3; O2SAT 96
[2024-06-23] MEDS ORDERED: PROCHLORPERAZINE 10 MG/2 ML VIAL IM ONE (13:25)
[2024-06-23] MEDS ORDERED: KETOROLAC 30 MG/ML VIAL IM ONE (13:25)
== END 2024-06-23 13:08 | disposition left against medical advice (07) ==
LOC: MED 12:39
DX: R51.9 Headache, unspecified (principal); R11.0 Nausea; H53.149 Visual discomfort, unspecified; Z79.899 Other long term (current) drug therapy
CPT/HCPCS: 99281